=== PATIENT | female | born 1990 | race American Indian/Alaskan Native ===

== ENCOUNTER 2019-08-14 20:20 | Emergency (ER) | payer SELFPAY ==
[2019-08-14 20:26] VITALS: BP 158/90
--- NOTE | 2019-08-14 20:54 | Event Note ---
ED Screening Note Date of service: 08/14/19 Time: 20:49 ED Screening Note: Pt complains of right thigh pain x 6 days denies injury This initial assessment/diagnostic orders/clinical plan/treatment(s) is/are subject to change based on patients health status, clinical progression and re-assessment by fellow clinical providers in the ED. Further treatment and workup at subsequent clinical providers discretion. Patient/guardian urged not to elope from the ED as their condition may be serious if not clinically assessed and managed. Initial orders include: dimer ordered due to US unavailable
== END 2019-08-14 23:09 | disposition left against medical advice (07) ==
LOC: ED 20:20
DX: M79.651 Pain in right thigh (principal); Z53.21 Procedure and treatment not carried out due to patient leaving prior to being seen by health care provider
CPT/HCPCS: 36415; 85379

== ENCOUNTER 2019-08-15 17:20 | Emergency (ER) | payer SELFPAY ==
[2019-08-15 18:37] VITALS: BP 146/95
--- NOTE | 2019-08-15 18:40 | Event Note ---
Date: 08/15/19 28 y.o. female with no PMHx presents after having pulled a muscle in her right lower extremity after having sexual intercourse with her . Patient states that pain has worsened over the past week. Patient states that currently her pain is not present. Patient has no history of PE or DVT. Patient has had no recent long trips. Physical Exam: Normal exam. Patient has 2+ dorsalis pedis pulse present in right lower extremity and has on reproducible tenderness in right calf. No erythema or ecchymosis.
--- NOTE | 2019-08-15 20:01 | Vascular Lab Report ---
DUPLEX DOPPLER LOWER EXTREMITY VEINS, RIGHT INDICATION / CLINICAL INFORMATION: lower extremity pain. TECHNIQUE: Duplex doppler imaging was performed through the veins of the right lower extremity using venous comp ression and other maneuvers. COMPARISON: None available. FINDINGS: COMMON FEMORAL VEIN: Negative. FEMORAL VEIN: Negative. POPLITEAL VEIN: Negative. CALF VEINS: Negative. ADDITIONAL FINDINGS: None. IMPRESSION: 1. No sonographic evidence for DVT in the right lower extremity. Signer Name: Tori Tong MD Signed: 08/15/2019 7:57 PM Workstation Name: [id number]
--- NOTE | 2019-08-15 20:17 | Emergency Department Report ---
ED General Adult HPI - General Chief complaint: Medical Clearance Stated complaint: D-DIMER ELEVATED Time Seen by Provider: 08/15/19 19:18 Source: patient Mode of arrival: Ambulatory Limitations: No Limitations - History of Present Illness Initial comments: 28 y.o. female with no PMHx presents after having pulled a muscle in her right lower extremity after having sexual intercourse with her . Patient states that pain has worsened over the past week. Patient states that currently her pain is not present. Patient has no history of PE or DVT. Patient has had no recent long trips. - Related Data Previous Rx's Medication Instructions Recorded Last Taken Type Cyclobenzaprine [Flexeril] 10 mg PO TID PRN #21 tablet 08/15/19 Unknown Rx traMADoL [Ultram] 50 mg PO Q6HR PRN #15 tablet 08/15/19 Unknown Rx Allergies Allergy/AdvReac Type Severity Reaction Status Date / Time No Known Allergies Allergy Unverified 08/14/19 20:52 ED Review of Systems ROS: Stated complaint: D-DIMER ELEVATED Other details as noted in HPI Constitutional: denies: chills, fever Eyes: denies: eye pain, eye discharge, vision change ENT: denies: ear pain, throat pain Respiratory: denies: cough, shortness of breath, wheezing Cardiovascular: denies: chest pain, palpitations Endocrine: no symptoms reported Gastrointestinal: denies: abdominal pain, nausea, diarrhea Genitourinary: denies: urgency, dysuria, discharge Musculoskeletal: myalgia Skin: denies: rash, lesions Neurological: denies: headache, weakness, paresthesias Psychiatric: denies: anxiety, depression Hematological/Lymphatic: denies: easy bleeding, easy bruising ED Past Medical Hx - Past Medical History Previous Medical History?: No - Surgical History Past Surgical History?: No - Social History Smoking Status: Never Smoker Substance Use Type: None - Medications Home Medications: Home Medications Medication Instructions Recorded Confirmed Last Taken Type Cyclobenzaprine [Flexeril] 10 mg PO TID PRN #21 tablet 08/15/19 Unknown Rx traMADoL [Ultram] 50 mg PO Q6HR PRN #15 tablet 08/15/19 Unknown Rx ED Physical Exam - General Limitations: No Limitations General appearance: alert, in no apparent distress - Head Head exam: Present: atraumatic, normocephalic - Eye Eye exam: Present: normal appearance - ENT ENT exam: Present: mucous membranes moist - Neck Neck exam: Present: normal inspection - Respiratory Respiratory exam: Present: normal lung sounds bilaterally. Absent: respiratory distress - Cardiovascular Cardiovascular Exam: Present: regular rate, normal rhythm. Absent: systolic murmur, diastolic murmur, rubs, gallop - GI/Abdominal GI/Abdominal exam: Present: soft, normal bowel sounds - Extremities Exam Extremities exam: Present: normal inspection, other (tenderness noted in the right thigh region; 2+ dorsalis pedis pulses appreciated; patient able to dorsiflex and plantar flex foot without difficutly). Absent: calf tenderness - Back Exam Back exam: Present: normal inspection - Neurological Exam Neurological exam: Present: alert, oriented X3 - Psychiatric Psychiatric exam: Present: normal affect, normal mood - Skin Skin exam: Present: warm, dry, intact, normal color. Absent: rash ED Course Vital Signs 08/15/19 18:35 Temperature 98.0 F Pulse Rate 100 H Respiratory 20 Rate Blood Pressure 146/95 [Right] O2 Sat by Pulse 100 Oximetry ED Medical Decision Making - Medical Decision Making Patient has no evidence of DVT. Patient to be discharged with norco therapy and follow up with PCP. - Differential Diagnosis DVT; Ruptured Bakers Cyst Critical care attestation.: If time is entered above; I have spent that time in minutes in the direct care of this critically ill patient, excluding procedure time. ED Disposition Clinical Impression: Lower extremity pain, right Disposition: DC-01 TO HOME OR SELFCARE Is pt being admited?: No Condition: Stable Instructions: Arthralgia (ED), Hamstring Injury (ED) Prescriptions: Cyclobenzaprine [Flexeril] 10 mg PO TID PRN #21 tablet PRN Reason: Muscle Spasm traMADoL [Ultram] 50 mg PO Q6HR PRN #15 tablet PRN Reason: Pain Time of Disposition: 20:17 Print Language: [place]ORE[place]
== END 2019-08-15 20:52 | disposition home or self-care (01) ==
LOC: ED 17:20
DX: M79.661 Pain in right lower leg (principal); Z79.1 Long term (current) use of non-steroidal anti-inflammatories (NSAID); Z79.899 Other long term (current) drug therapy